=== PATIENT | female | born 2000 | race American Indian/Alaskan Native ===

== ENCOUNTER 2021-06-07 12:16 | Emergency (ER) | payer SELFPAY ==
[2021-06-07] MEDS ORDERED: METOCLOPRAMIDE 10 MG TAB PO ONE (13:19)
[2021-06-07] MEDS ORDERED: ACETAMINOPHEN 325 MG TAB PO ONE (13:19)
--- NOTE | 2021-06-07 13:24 | Emergency Department Report ---
ED HPI - General Chief complaint: Abdominal Pain Stated complaint: Abdominal Pain Time Seen by Provider: 06/07/21 13:15 Source: patient Mode of arrival: Ambulatory Limitations: No Limitations - History of Present Illness Initial comments: Patient is a 21-year-old female presents emergency room complaints of lower abdominal pain that began a couple days ago. Patient states that she took vtre-otn-wyyvdet test and reports it was positive. She has not had this confirmed she reports that her last menstrual cycle was 021. Patient states that this morning she had nausea and had one episode of vomiting. She is able to tolerate p.o. intake. she denies any fever, diarrhea, dysuria, vaginal bleeding, vaginal discharge. No past medical history. No allergies medications. /P: 0/A: 1 () - Related Data Previous Rx's Medication Instructions Recorded Last Taken Type Acetaminophen [Tylenol] 650 mg PO Q8HR PRN #20 capsule 06/07/21 Unknown Rx Metoclopramide [Reglan] 10 mg PO Q8HR PRN #10 tab 06/07/21 Unknown Rx cephALEXin [Keflex] 500 mg PO BID 7 Days #14 capsule 06/07/21 Unknown Rx Allergies Allergy/AdvReac Type Severity Reaction Status Date / Time No Known Allergies Allergy Unverified 06/07/21 13:21 ED Review of Systems ROS: Stated complaint: Abdominal Pain Other details as noted in HPI Comment: All other systems reviewed and negative ED Past Medical Hx - Medications Home Medications: Home Medications Medication Instructions Recorded Confirmed Last Taken Type Acetaminophen [Tylenol] 650 mg PO Q8HR PRN #20 capsule 06/07/21 Unknown Rx Metoclopramide [Reglan] 10 mg PO Q8HR PRN #10 tab 06/07/21 Unknown Rx cephALEXin [Keflex] 500 mg PO BID 7 Days #14 capsule 06/07/21 Unknown Rx ED Physical Exam - General Limitations: No Limitations General appearance: alert, in no apparent distress - Head Head exam: Present: atraumatic, normocephalic - Eye Eye exam: Present: normal appearance - ENT ENT exam: Present: mucous membranes moist - Respiratory Respiratory exam: Present: normal lung sounds bilaterally. Absent: respiratory distress, wheezes, rales, rhonchi, stridor, chest wall tenderness, accessory mu scle use, decreased breath sounds, prolonged expiratory - Cardiovascular Cardiovascular Exam: Present: regular rate, normal rhythm, normal heart sounds. Absent: systolic murmur, diastolic murmur, rubs, gallop - GI/Abdominal GI/Abdominal exam: Present: soft, tenderness (mild lower), normal bowel sounds. Absent: distended, guarding, rebound, rigid - Neurological Exam Neurological exam: Present: alert, oriented X3 - Psychiatric Psychiatric exam: Present: normal affect, normal mood - Skin Skin exam: Present: warm, dry, intact ED Course Vital Signs 06/07/21 06/07/21 13:17 18:23 Temperature 98 F 98.5 F Pulse Rate 70 79 Respiratory 16 16 Rate Blood Pressure 112/44 114/69 [Right] O2 Sat by Pulse 98 100 Oximetry ED Medical Decision Making - Lab Data Result diagrams: 06/07/21 14:44 06/07/21 14:44 Lab Results 06/07/21 06/07/21 06/07/21 Range/Units 13:19 14:44 14:44 WBC 12.2 H (4.5-11.0) K/mm3 RBC 5.15 H (3.65-5.03) M/mm3 Hgb 13.3 (10.1-14.3) gm/dl Hct 42.2 (30.3-42.9) % MCV 82 (79-97) fl MCH 26 L (28-32) pg MCHC 31 (30-34) % RDW 14.9 (13.2-15.2) % Plt Count 289 (140-440) K/mm3 Lymph % (Auto) 18.9 (13.4-35.0) % Marion % (Auto) 7.3 (0.0-7.3) % Eos % (Auto) 0.3 (0.0-4.3) % Baso % (Auto) 0.2 (0.0-1.8) % Lymph # (Auto) 2.3 (1.2-5.4) K/mm3 Marion # (Auto) 0.9 H (0.0-0.8) K/mm3 Eos # (Auto) 0.0 (0.0-0.4) K/mm3 Baso # (Auto) 0.0 (0.0-0.1) K/mm3 Seg Neutrophils % 73.3 H (40.0-70.0) % Seg Neutrophils # 8.9 H (1.8-7.7) K/mm3 Sodium 135 L (137-145) mmol/L Potassium 3.9 (3.6-5.0) mmol/L Chloride 99.4 (98-107) mmol/L Carbon Dioxide 21 L (22-30) mmol/L Anion Gap 19 mmol/L BUN 7 (7-17) mg/dL Creatinine 0.6 (0.6-1.2) mg/dL Estimated GFR > 60 ml/min BUN/Creatinine Ratio 12 % Glucose 99 (65-100) mg/dL Calcium 9.7 (8.4-10.2) mg/dL Total Bilirubin 0.20 (0.1-1.2) mg/dL AST 15 (5-40) units/L ALT 12 (7-56) units/L Alkaline Phosphatase 56 (35-129) units/L Total Protein 7.5 (6.3-8.2) g/dL Albumin 4.4 (3.9-5) g/dL Albumin/Globulin Ratio 1.4 % HCG, Quant (0-4) mIU/mL Urine Color Mikayla (Yellow) Urine Turbidity Cloudy (Clear) Urine pH 6.0 (5.0-7.0) Ur Specific Boomer 1.021 (1.003-1.030) Urine Protein 30 mg/dl (Negative) mg/dL Urine Glucose (UA) Neg (Negative) mg/dL Urine Ketones 20 (Negative) mg/dL Urine Blood Neg (Negative) Urine Nitrite Neg (Negative) Urine Bilirubin Neg (Negative) Urine Urobilinogen 4.0 (<2.0) mg/dL Ur Leukocyte Esterase Neg (Negative) Urine WBC (Auto) 11.0 H (0.0-6.0) /HPF Urine RBC (Auto) 3.0 (0.0-6.0) /HPF U Epithel Cells (Auto) 9.0 (0-13.0) /HPF Urine Bacteria (Auto) 1+ (Negative) /HPF Urine Mucus 3+ /HPF 12/20/21 Range/Units 14:44 WBC (4.5-11.0) K/mm3 RBC (3.65-5.03) M/mm3 Hgb (10.1-14.3) gm/dl Hct (30.3-42.9) % MCV (79-97) fl MCH (28-32) pg MCHC (30-34) % RDW (13.2-15.2) % Plt Count (140-440) K/mm3 Lymph % (Auto) (13.4-35.0) % Marion % (Auto) (0.0-7.3) % Eos % (Auto) (0.0-4.3) % Baso % (Auto) (0.0-1.8) % Lymph # (Auto) (1.2-5.4) K/mm3 Marion # (Auto) (0.0-0.8) K/mm3 Eos # (Auto) (0.0-0.4) K/mm3 Baso # (Auto) (0.0-0.1) K/mm3 Seg Neutrophils % (40.0-70.0) % Seg Neutrophils # (1.8-7.7) K/mm3 Sodium (137-145) mmol/L Potassium (3.6-5.0) mmol/L Chloride (98-107) mmol/L Carbon Dioxide (22-30) mmol/L Anion Gap mmol/L BUN (7-17) mg/dL Creatinine (0.6-1.2) mg/dL Estimated GFR ml/min BUN/Creatinine Ratio % Glucose (65-100) mg/dL Calcium (8.4-10.2) mg/dL Total Bilirubin (0.1-1.2) mg/dL AST (5-40) units/L ALT (7-56) units/L Alkaline Phosphatase (35-129) units/L Total Protein (6.3-8.2) g/dL Albumin (3.9-5) g/dL Albumin/Globulin Ratio % HCG, Quant 53140 H (0-4) mIU/mL Urine Color (Yellow) Urine Turbidity (Clear) Urine pH (5.0-7.0) Ur Specific Boomer (1.003-1.030) Urine Protein (Negative) mg/dL Urine Glucose (UA) (Negative) mg/dL Urine Ketones (Negative) mg/dL Urine Blood (Negative) Urine Nitrite (Negative) Urine Bilirubin (Negative) Urine Urobilinogen (<2.0) mg/dL Ur Leukocyte Esterase (Negative) Urine WBC (Auto) (0.0-6.0) /HPF Urine RBC (Auto) (0.0-6.0) /HPF U Epithel Cells (Auto) (0-13.0) /HPF Urine Bacteria (Auto) (Negative) /HPF Urine Mucus /HPF - Radiology Data Radiology results: report reviewed Ordering Physician: KARLOS BECKER Date of Service: 06/07/21 Procedure(s): US OB <= 14 weeks fetus Accession Number(s): [id number] cc: KARLOS BECKER US OB <= 14 weeks fetus, US OB transvaginal INDICATION / CLINICAL INFORMATION: , abd pain. TECHNIQUE: Transabdominal. COMPARISON: None available. FINDINGS: UTERUS: 2.7 x 1 x 1.5 cm subchorionic hemorrhage. GESTATIONAL SAC: Well-defined oval shape and intrauterine in location. YOLK SAC: No significant abnormality. EMBRYO/FETUS: - [place]-Rump Length = 0.3 cm - Heart Rate, beats per minute (if present) = 95 beats per minute ADNEXA: Left corpus luteal cyst. No significant abnormality. FREE FLUID: None. ADDITIONAL FINDINGS: None. IMPRESSION: 1. Single, living intrauterine with estimated sonographic age of 6 weeks 0 days. 2. Small subchorionic hemorrhage. Signer Name: Mnoroe yBrd MD Signed: 06/07/2021 6:01 PM Workstation Name: [id number] Transcribed By: CS Dictated By: Monroe Byrd MD Electronically Authenticated By: Monroe Byrd MD Signed Date/Time: 06/07/211800 DD/ 99 TD/TT: - Medical Decision Making Patient is a 21-year-old female presents emergency room complaints of lower abdominal pain that began a couple days ago. Patient states that she took lobo-ljc-htvkwov test and reports it was positive. She has not had this confirmed she reports that her last menstrual cycle was 04/23/2021. Patient states that this morning she had nausea and had one episode of vomiting. She is able to tolerate p.o. intake. she denies any fever, diarrhea, dysuria, vaginal bleeding, vaginal discharge. No past medical history. No allergies medications. /P: 0/A: 1 (). Vitals are normal. On exam mild lower abdominal tenderness palpation. Labs with mild leukocytosis, mild dehydration. Patient given medications while in emergency department was able to tolerate p.o. intake, discussed the importance of increasing oral hydration. UA shows evidence of UTI. OB ultrasound 1. Single, living intrauterine with estimated sonographic age of 6 weeks 0 days. 2. Small subchorionic hemorrhage. On reexamination patient is feeling much better. Discussed all results with patient answer questions. discussed the importance of OB follow-up. Advised patient Please take medication as prescribed. Increase your fluid intake. 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 Please take a vitamin [id number]. Return to emergency room for any new or worsening symptoms. Critical care attestation.: If time is entered above; I have spent that time in minutes in the direct care of this critically ill patient, excluding procedure time. ED Disposition Clinical Impression: Abdominal pain during Qualifiers: Trimester: first trimester Qualified Code(s): O26.891 - Other specified related conditions, first trimester UTI (urinary tract infection) Qualifiers: Urinary tract infection type: acute cystitis Hematuria presence: without hematuria Qualified Code(s): N30.00 - Acute cystitis without hematuria Subchorionic hematoma in first trimester Qualifiers: Fetus number: single or unspecified fetus Qualified Code(s): O41.8X10 - Other specified disorders of amniotic fluid and membranes, first trimester, not applicable or unspecified Nausea & vomiting Qualifiers: Vomiting type: unspecified Qualified Code(s): R11.2 - Nausea with vomiting, unspecified Disposition: 01 HOME / SELF CARE / HOMELESS Is pt being admited?: No Does the pt Need Aspirin: No Condition: Stable Instructions: Abdominal Pain During , Aggi-ku-Ogzu, Urinary Tract Infection, Adult, Xthy-ix-Shgf, Subchorionic Hematoma, Abdominal Pain (ED) Additional Instructions: Please take medication as prescribed. Increase your fluid intake. 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 Please take a vitamin [id number]. Return to emergency room for any new or worsening symptoms. Prescriptions: cephALEXin [Keflex] 500 mg PO BID 7 Days #14 capsule Metoclopramide [Reglan] 10 mg PO Q8HR PRN #10 tab PRN Reason: nausea/vomiting Acetaminophen [Tylenol] 650 mg PO Q8HR PRN #20 capsule PRN Reason: pain Referrals: PRIMARY CARE, [Primary Care Provider] - 3-5 Days JT BUI MD [Staff Physician] - 3-5 Days Time of Disposition: 18:09 Print Language: MAORI
[2021-06-07 15:24] LABS: Basophils % (Auto) 0.2 % (0.0-1.8); Eosinophils % (Auto) 0.3 % (0.0-4.3); Hematocrit 42.2 % (30.3-42.9); Hemoglobin 13.3 gm/dl (10.1-14.3); Lymphocytes # (Auto) 2.3 K/mm3 (1.2-5.4); Lymphocytes % (Auto) 18.9 % (13.4-35.0); Mean Corpuscular HGB Conc 31 % (30-34); Mean Corpuscular Volume 82 fl (79-97); Monocytes # (Auto) 0.9 K/mm3 (0.0-0.8); Monocytes % (Auto) 7.3 % (0.0-7.3); Platelet Count 289 K/mm3 (140-440); Red Blood Count 5.15 M/mm3 (3.65-5.03); Red Cell Distribution Width 14.9 % (13.2-15.2)
[2021-06-07 15:42] LABS: Alanine Aminotransferase 12 units/L (7-56); Albumin 4.4 g/dL (3.9-5); Blood Urea Nitrogen 7 mg/dL (7-17); Calcium 9.7 mg/dL (8.4-10.2); Hemolysis Index 5
[2021-06-07 15:58] LABS: BUN/Creatinine Ratio 12
[2021-06-07 17:36] LABS: Bacteria,Urine 1+ /HPF (Negative); Bilirubin,Urine NEG (Negative); Blood,Urine NEG (Negative); Color,Urine Amber (Yellow); Mucus,Urine 3+ /HPF
--- NOTE | 2021-06-07 18:06 | Ultrasound Report ---
US OB <= 14 weeks fetus, US OB transvaginal INDICATION / CLINICAL INFORMATION: , abd pain. TECHNIQUE: Transabdominal. COMPARISON: None available. FINDINGS: UTERUS: 2.7 x 1 x 1.5 cm subchorionic hemorrhage. GESTATIONAL SAC: Well-defined oval shape and intrauterine in location. YOLK SAC: No significant abnormality. EMBRYO/FETUS: - [place]-Rump Length = 0.3 cm - Heart Rate, beats per minute (if present) = 95 beats per minute ADNEXA: Left corpus luteal cyst. No significant abnormality. FREE FLUID: None. ADDITIONAL FINDINGS: None. IMPRESSION: 1. Single, living intrauterine with estimated sonographic age of 6 weeks 0 days. 2. Small subchorionic hemorrhage. Signer Name: Monroe Byrd MD Signed: 06/07/2021 6:01 PM Workstation Name: [id number]
--- NOTE | 2021-06-07 18:06 | Ultrasound Report ---
US OB <= 14 weeks fetus, US OB transvaginal INDICATION / CLINICAL INFORMATION: , abd pain. TECHNIQUE: Transabdominal. COMPARISON: None available. FINDINGS: UTERUS: 2.7 x 1 x 1.5 cm subchorionic hemorrhage. GESTATIONAL SAC: Well-defined oval shape and intrauterine in location. YOLK SAC: No significant abnormality. EMBRYO/FETUS: - [place]-Rump Length = 0.3 cm - Heart Rate, beats per minute (if present) = 95 beats per minute ADNEXA: Left corpus luteal cyst. No significant abnormality. FREE FLUID: None. ADDITIONAL FINDINGS: None. IMPRESSION: 1. Single, living intrauterine with estimated sonographic age of 6 weeks 0 days. 2. Small subchorionic hemorrhage. Signer Name: Monroe Byrd MD Signed: 06/07/2021 6:01 PM Workstation Name: [id number]
[2021-06-07 18:30] VITALS: BP 114/69
== END 2021-06-07 18:31 | disposition home or self-care (01) ==
LOC: ED 12:16
DX: O23.41 Unspecified infection of urinary tract in pregnancy, first trimester (principal); O21.0 Mild hyperemesis gravidarum; O41.8X10 Other specified disorders of amniotic fluid and membranes, first trimester, not applicable or unspecified; N39.0 Urinary tract infection, site not specified; Z3A.01 Less than 8 weeks gestation of pregnancy
CPT/HCPCS: 36415; 76801; 76817; 80053; 81001; 84702; 85025; 87076; 87086; 87186; 99284

== ENCOUNTER 2021-11-30 10:53 | Outpatient (CLI) | payer MEDICAID ==
[2021-11-30] MEDS ORDERED: LACTATED RINGERS 500 ML IV ONE ×2 (11:52→14:08)
[2021-11-30 11:53] VITALS: BP 108/64
[2021-11-30] MEDS ORDERED: ONDANSETRON 4 MG/2 ML INJ IV ONE (11:53)
[2021-11-30] MEDS ORDERED: METOCLOPRAMIDE 10 MG/2 ML INJ IV ONE (11:53)
[2021-11-30] MEDS ORDERED: LACTATED RINGERS 1,000 ML IV SCH (12:00)
== END 2021-11-30 14:21 | disposition home or self-care (01) ==
LOC: TRG 10:53 → APU 10:54 → TRG 14:21
PROVIDERS: ATTEND Obstetrics & Gynecology
DX: O62.9 Abnormality of forces of labor, unspecified (principal); O21.2 Late vomiting of pregnancy; O26.893 Other specified pregnancy related conditions, third trimester; R10.9 Unspecified abdominal pain; R07.9 Chest pain, unspecified; O99.013 Anemia complicating pregnancy, third trimester; D64.9 Anemia, unspecified; Z3A.32 32 weeks gestation of pregnancy
CPT/HCPCS: 59025; 96361; 96374; 96375; J2405; J2765; J7120; 96360

== ENCOUNTER 2022-01-16 03:06 | Inpatient (IN) | payer MEDICAID ==
[2022-01-16] MEDS ORDERED: LIDOCAINE (2%) 20 MG/1 ML VIAL 20 ML MDV INFILTRATI ONE (04:06)
[2022-01-16] MEDS ORDERED: ePHEDrine SULFATE 50 MG/1 ML INJ IV PRN ×3 (04:06→17:19)
[2022-01-16] MEDS ORDERED: LOPERAMIDE 2 MG CAP PO PRN (04:06)
[2022-01-16] MEDS ORDERED: TERBUTALINE 1 MG/1 ML INJ SUB-Q PRN (04:06)
[2022-01-16] MEDS ORDERED: CARBOPROST TROMETHAMINE 250 MCG/1 ML INJ IM PRN (04:06)
[2022-01-16] MEDS ORDERED: METHYLERGONOVINE MALEATE 0.2 MG/ML VIAL IM PRN (04:06)
[2022-01-16] MEDS ORDERED: OXYTOCIN 10 UNIT/1 ML INJ IM PRN (04:06)
[2022-01-16] MEDS ORDERED: miSOPROStol 200 MCG TAB PR PRN (04:06)
[2022-01-16] MEDS ORDERED: ACETAMINOPHEN 325 MG TAB PO PRN (04:06)
[2022-01-16] MEDS ORDERED: MINERAL OIL 30 ML ORAL LIQD PO PRN (04:06)
[2022-01-16] MEDS ORDERED: fentaNYL 100 MCG/2 ML INJ IV PRN (04:06)
[2022-01-16] MEDS ORDERED: BUTORPHANOL 2 MG/1 ML INJ IV PRN (04:06)
[2022-01-16 04:29] LABS: Hematocrit 31.1 % (30.3-42.9); Hemoglobin 10.5 gm/dl (10.1-14.3); Mean Corpuscular HGB Conc 34 % (30-34); Mean Corpuscular Volume 77 fl (79-97); Platelet Count 272 K/mm3 (140-440); Red Blood Count 4.02 M/mm3 (3.65-5.03); Red Cell Distribution Width 14.3 % (13.2-15.2)
[2022-01-16] MEDS ORDERED: OXYTOCIN DRIP 30 UNITS/500 ML BAG IV SCH ×2 (05:00)
--- NOTE | 2022-01-16 05:44 | History and Physical Report ---
History of Present Illness Date of examination: 01/16/22 Date of admission: 01/16/22 04:08 History of present illness: This is a 20-year-old patient of our practice who has not been seen in office since 32 weeks, who presents to labor and delivery with complaints of rupture membranes and contractions. The triage nurse states that the patient had grossly ruptured membranes cervix: Dilatation 1 cm. Patient be admitted for premature rupture membranes at term. 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 yes EDC Calculations LMP: 01/29/2022 EDC Confirmation: 01/29/2022 Past History : 2 Term Births: 0 Premature Births: 0 Living Children: 0 Para: 0 Mult. Births: 0 Prev : 0 Prev. attempt? 0 Aborta: 1 Elect. Ab: 1 Spont. Ab: 0 Ectopics: 0 # 1 Delivery date: 2018 Weeks Gestation: 20 Delivery type: EAB Comments: D&C Past Medical History: Asthma - childhood Past Surgical History: D&C Family History Summary: Other Family Member - Has Family History of Hypertension - Entered On: 07/06/2021 Other Family Member - Has Family History of Diabetes - Entered On: 07/06/2021 Aunt - Has Family History Breast Cancer - Entered On: 07/06/2021 Social History: Patient is single Smoking History: Patient has never smoked. Risk Factors: Smoked Tobacco Use: Never smoker Smokeless Tobacco Use: Never Counseled to Quit/Cut Down: yes Passive Smoke Exposure: no HIV High Risk Behavior: no Caffeine Use: 1 drinks per day Exercise: yes Times/wk: 3 Type of Exercise: walking Seatbelt Use: preg-direct selling counselor % No Dietary Counseling Reason: pn yes Alcohol Use: yes Type: occ Drinks per day: social Drug Use: yes Drug of Choice: marijuana Comments/Other Substances: occ Past Medical History Anesthesia Complications: negative Anemia: negative Autoimmune Disorder: negative Bleeding Disorder: negative Blood Transfusions: negative Breast Disease: negative Diabetes: negative Heart Disease: negative Hypertension: negative Hepatitis/Liver Disease: negative Kidney Disease/UTI: negative Neurologic/Epilepsy/Migraines: negative Phlebitis/Varicosities: negative Psychiatric: negative Pulmonary Disease/Asthma: negative Thyroid Disease: negative Hospitalizations: negative Surgery (Non-grout machine tender): negative Abnormal PAP: negative JOSE R Exposure: negative Infertility: negative Uterine Anomaly: negative Uterine Surgery (not C/S): negative Other Gynecologic Problems: negative Social Hx: Patient is single Smoking History: Patient has never smoked. Infection History Hx of STD: none HIV Risk Eval: no Hepatitis B Risk Eval: low risk Personal hx. of genital herpes: no Rash, Viral, or Febrile illness since last LMP? no Varicella/Chicken Pox Status: Unknown TB Risk: no Genetic History Congenital Heart Defect: Mom: no Dad: no Veronica Disease: Mom: no Dad: no Thalassemia Mom: no Dad: no Neural Tube Defect Mom: no Dad: no Down's Syndrome Mom: no Dad: no Georges-Sachs Mom: no Dad: no Sickle Cell Disease/Trait Mom: no Dad: no Hemophilia Mom: no Dad: no Muscular Dystrophy Mom: no Dad: no Cystic Fibrosis Mom: no Dad: no Kelly Chorea Mom: no Dad: no Mental Retardation Mom: no Dad: no Fragile X Mom: no Dad: no Other Genetic/Chromosomal Disorder Mom: no Dad: no Child w/other defect Mom: no Dad: no Enviromental Exposures Enviromental Exposures Reviewed Xray Exposure: no Medication, drug, or alcohol use since LMP: no Chemical/Other Exposure: no Exposure to Cat Liter: no Hx of Parvovirus (Fifth Disease): no Occupational Exposure to Children: none 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: 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 Current Allergies (reviewed today): No known allergies Past History Past Medical History: asthma Past Surgical History: no surgical history LICENSED NURSE PRACTITIONER History: other (See history of present illness) Social history: full code, other (See history of present illness) - Obstetrical History Expected Date of Delivery: 01/29/22 Actual Gestation: 38 Week(s) 1 Day(s) : 2 Para: 0 Hx # Term Pregnancies: 0 Number of Pregnancies: 0 Spontaneous Abortions: 0 Induced : 1 Number of Living Children: 0 Medications and Allergies Allergies Allergy/AdvReac Type Severity Reaction Status Date / Time No Known Allergies Allergy Unverified 06/07/21 13:21 Home Medications Medication Instructions Recorded Confirmed Last Taken Type Acetaminophen [Tylenol] 650 mg PO Q8HR PRN #20 capsule 06/07/21 Unknown Rx Metoclopramide [Reglan] 10 mg PO Q8HR PRN #10 tab 06/07/21 Unknown Rx cephALEXin [Keflex] 500 mg PO BID 7 Days #14 capsule 06/07/21 Unknown Rx Active Meds: Active Medications Acetaminophen (Acetaminophen 325 Mg Tab) 650 mg PO Q4H PRN PRN Reason: Pain, Mild (1-3) Butorphanol Tartrate (Butorphanol 2 Mg/1 Ml Inj) 1 mg IV Q2H PRN PRN Reason: Pain, Moderate(4-6) LABOR PAIN Butorphanol Tartrate (Butorphanol 2 Mg/1 Ml Inj) 2 mg IV Q2H PRN PRN Reason: Pain , Severe (7-10) Carboprost Tromethamine (Carboprost Tromethamine 250 Mcg/1 Ml Inj) 250 mcg IM ONCE PRN PRN Reason: Uterine Bleeding Ephedrine Sulfate (Ephedrine Sulfate 50 Mg/1 Ml Inj) 10 mg IV Q2M PRN PRN Reason: Hypotension Fentanyl (Fentanyl 100 Mcg/2 Ml Inj) 100 mcg IV Q2H PRN PRN Reason: Pain,Severe (7-10) LABOR PAIN Oxytocin/Sodium Chloride (Pitocin/Ns 30 Unit/500ml) 30 units in 500 mls @ 2 mls/hr IV TITR SARA; Protocol Lactated Ringer's (Lactated Ringers) 1,000 mls @ 125 mls/hr IV DIRECT SARA Oxytocin/Sodium Chloride (Pitocin/Ns 30 Unit/500ml) 30 units in 500 mls @ 40 mls/hr IV TITR SARA; Protocol Loperamide HCl (Loperamide 2 Mg Cap) 2 mg PO ONCE PRN PRN Reason: give with Hemabate Methylergonovine Maleate (Methylergonovine Maleate 0.2 Mg/Ml Vial) 0.2 mg IM O NCE PRN PRN Reason: Uterine Bleeding Mineral Oil (Mineral Oil 30 Ml Oral Liqd) 30 ml PO QHS PRN PRN Reason: Constipation Misoprostol (Misoprostol 200 Mcg Tab) 800 mcg NJ ONCE PRN PRN Reason: Uterine Bleeding Oxytocin (Oxytocin 10 Unit/1 Ml Inj) 10 unit IM ONCE PRN PRN Reason: Uterine Bleeding Terbutaline Sulfate (Terbutaline 1 Mg/1 Ml Inj) 0.25 mg SUB-Q ONCE PRN PRN Reason: Hyperstimulation/Hypertonicity Review of Systems All systems: negative - Vital Signs Vital signs: Vital Signs Temp Resp Pulse Ox 98.2 F 14 100 01/16/22 03:25 01/16/22 03:25 01/16/22 03:25 Temp Pulse Resp BP Pulse Ox 98.2 F 55 L 14 96/49 98 01/16/22 03:25 01/16/22 05:37 01/16/22 03:25 01/16/22 05:07 01/16/22 05:37 - Physical Exam Breasts: Positive: deferred Cardiovascular: Regular rate Lungs: Positive: Normal air movement Abdomen: Positive: normal appearance Cervix: Positive: other (Per RN) Uterus: Positive: enlarged - Obstetrical FHR: category 1 Uterine Contraction Pattern: Irregular Uterine Tone Measurement Phase: Resting Uterine Contraction Intensity: Mild Results Result Diagrams: 01/16/22 04:10 Abnormal lab results 01/16/22 Range/Units 04:10 MCV 77 L (79-97) fl MCH 26 L (28-32) pg All other labs normal. Assessment and Plan - Patient Problems (1) Supervision of high-risk with insufficient care in third trimester Current Visit: Yes Status: Acute (2) Premature rupture of membranes, onset of labor within 24 hours of rupture, unspecified weeks of gestation Current Visit: Yes Status: Acute Qualifiers: PROM gestational age: full term Qualified Code(s): O42.02 - Full-term premature rupture of membranes, onset of labor within 24 hours of rupture Plan to address problem: Will admit to labor and delivery. Patient with unknown group B status. We will give IV antibiotics and follow routine labor and delivery protocols.
[2022-01-16] MEDS ORDERED: AMPICILLIN/NS 1 GM/50 ML 1 GM/50 ML BAG IV SCH (06:00)
[2022-01-16] MEDS: LACTATED RINGERS 1,000 ML IV SCH ×3 (06:21→16:45)
[2022-01-16] MEDS ORDERED: AMPICILLIN/NS 2 GM/100 ML 2 GM/100 ML BAG IV ONE (08:00)
[2022-01-16] MEDS: BUTORPHANOL 2 MG/1 ML INJ IV PRN ×2 (13:17→15:33)
[2022-01-16] MEDS: AMPICILLIN/NS 1 GM/50 ML 1 GM/50 ML BAG IV SCH ×2 (13:29→21:17)
--- NOTE | 2022-01-16 14:25 | Event Note ---
Date: 01/16/22 Chart reviewed spoke to RN cervix changed to 3 cm recently received Stadol, pitocin @ 6mu/min will continue present management patient does not desire epidural at present
[2022-01-16] MEDS ORDERED: NALOXONE 0.4 MG/1 ML INJ IV PRN ×2 (17:06→17:19)
--- NOTE | 2022-01-16 17:08 | Anesthesia Day of Surgery ---
Anesthesia Day of Surgery - Day of Surgery Patient Examined: Yes Patient H&P Reviewed: Yes Patient is NPO: Yes Beta Blockers: No Cardiac Clearance: No Pulmonary Clearance: No Vinnie's Test: N/A
--- NOTE | 2022-01-16 17:08 | Anesthesia Consultation ---
Anesthesia Consult and Med Hx Date of service: 01/16/22 - Airway Anesthetic Teeth Evaluation: Good ROM Head & Neck: Adequate Mental/Hyoid Distance: Adequate Mallampati Class: Class II Intubation Access Assessment: Probably Good - Pulmonary Exam CTA: Yes - Cardiac Exam Cardiac Exam: RRR - Pre-Operative Health Status ASA Pre-Surgery Classification: ASA2 Proposed Anesthetic Plan: Epidural - Pulmonary Hx Smoking: No Hx Asthma: No Hx Respiratory Symptoms: No SOB: No COPD: No Home Oxygen Therapy: No Hx Sleep Apnea: No - Cardiovascular System Hx Hypertension: No Hx Coronary Artery Disease: No Hx Heart Attack/AMI: No Hx Angina: No Hx Percutaneous Transluminal Coronary Angioplasty (PTCA): No Hx Cardia Arrhythmia: No Hx Pacemaker: No Hx Internal Defibrillator: No Hx Valvular Heart Disease: No Hx Heart Murmur: No Hx Peripheral Vascular Disease: No - Central Nervous System Hx Neuromuscular Disorder: No Hx Seizures: No CVA: No Hx Back Pain: No Hx Psychiatric Problems: No - Gastrointestinal Hx Ulcer: No Hx Gastroesophageal Reflux Disease: No - Endocrine Hx Renal Disease: No Hx End Stage Renal Disease: No Hx Cirrhosis: No Hx Liver Disease: No Hx Insulin Dependent Diabetes: No Hx Non-Insulin Dependent Diabetes: No Hx Thyroid Disease: No Hx Hypothyroidism: No Hx Hyperthyroidism: No - Hematic Hx Anemia: No Hx Sickle Cell Disease: No - Other Systems Hx Alcohol Use: No Hx Substance Use: No Hx Cancer: No Hx Obesity: Yes
--- NOTE | 2022-01-16 17:11 | Progress Note ---
Labor Epidural - Labor Epidural Start Time: 16:44 Stop Time: 16:47 Performed by:: WAYNE PASCUAL Procedure: Epidural Requested for Labor Pain. H&P and PT Chart reviewed and consent obtained. Time out performed and the procedure was explained, all questions answered. Patient was placed in a sitting position with monitors applied. The PTs back was prepped and draped in usual sterile fashion. The Skin was localized with 3 mL of 1% lidocaine at L3-L4. A 17-gauge Touhy epidural needle was advanced to [id number] with saline at 7 cm and no blood/CSF was noted via epidural needle. Epidural catheter was advanced to 12 cm. There was negative aspiration for blood and CSF in the catheter and negative response to a test dose of 3 ml 1.5% lidocaine w/ Epi and a sterile dressing was applied Patient tolerated the procedure well and there were no immediate complications noted.
[2022-01-16] MEDS: fentaNYL-BUPIV 2 MCG/ML-0.125% 200 MCG/100 ML BAG EPIDURAL SCH ×2 (17:27→23:28)
--- NOTE | 2022-01-16 18:52 | Event Note ---
Date: 01/16/22 Chart reviewed cervix is changing spoke to RN patient now comfortable with epidural will adjust toco to better monitor contractions. Titrate pitocin per protocol
--- NOTE | 2022-01-16 22:20 | Event Note ---
Date: 01/16/22 Called RN cervix was checked at shift change no change. IV pump for pitocin stopped during epidural, therefore contractions spaced out. Pitocin has been restarted.
[2022-01-16] MEDS ORDERED: BUPIVACAINE/PF (0.25%) 2.5 MG/ML 10 ML VIAL INFILTRATI ONE (23:07)
--- NOTE | 2022-01-17 00:39 | Event Note ---
Date: 01/17/22 Tracing reviewed. Contractions have returned. Cervix suture around 2300 noted 5 cm.
[2022-01-17] MEDS ORDERED: BUPIVACAINE/PF (0.25%) 2.5 MG/ML 30 ML VIAL INFILTRATI ONE (00:58)
--- NOTE | 2022-01-17 01:31 | Progress Note ---
Labor Epidural - Labor Epidural Start Time: :18 Stop Time: : Performed by:: WAYNE PASCUAL Procedure: Pt complaining of low abdominal pain with no relief even after bolusing. Upon inspection of existing catheter it appears to be still intact midline with no migration. Spoke with Pt about replacing existing catheter with a second one and she agreed and consented. Time out performed and the procedure was again explained and all questions answered. Patient was placed in a sitting position with monitors applied. The PTs back was prepped and draped in usual sterile fashion. The Skin was localized with 3 mL of 1% lidocaine at L3-L4. A 17-gauge Touhy epidural needle was advanced to АЛЕ[place]САНДР with saline at 7 cm and no blood/CSF was noted via epidural needle. Epidural catheter was advanced to 11 cm. There was negative aspiration for blood and CSF in the catheter and negative response to a test dose of 3 ml 1.5% lidocaine w/ Epi and a sterile dressing was applied Patient tolerated the procedure well and there were no immediate complications noted.
--- NOTE | 2022-01-17 03:13 | Procedure Note ---
OB Delivery Note - Delivery Date of Delivery: 01/17/22 Surgeon: AMADEO ROSE Estimated blood loss: other (350cc) - Vaginal Delivery position: OA Intrapartum events: PROM->1hr before delivery Delivery augmentation: pitocin Delivery monitor: external FHT, external uterine Route of delivery: Delivery placenta: spontaneous Delivery cord: nuchal cord Episiotomy: none Delivery laceration: other (Bilateral periurethral lacerations no repair needed) Anesthesia: epidural Delivery comments: of infant over intact perineum. to mother's chest for skin to skin. Cord cut and clamped. . Spontaneous delivery of placenta, intact, 3 vessels noted. Perineum and vaginal inspected, lacerations noted. Fundus firm, minimal bleeding noted. Infant left in stable condition in the care of RN. Sponge count correct. - Infant A at 1 minute: 8 at 5 minutes: 9 Gender: Male (Weight 6 pounds 13 ounces)
[2022-01-17] MEDS ORDERED: HYDROCORTISONE 25 MG RECTAL SUPP PR PRN (05:51)
[2022-01-17] MEDS ORDERED: diphenhydrAMINE 25 MG CAP PO PRN (05:51)
[2022-01-17] MEDS ORDERED: WITCH HAZEL/ GLYCERIN PAD TP PRN (05:51)
[2022-01-17] MEDS ORDERED: LANOLIN/ZINC/DIMETHICONE (LANSINOH) 7 GM TP PRN (05:51)
[2022-01-17] MEDS ORDERED: ACETAMINOPHEN 325 MG TAB PO PRN (05:51)
[2022-01-17] MEDS ORDERED: MAGNESIUM HYDROXIDE (MOM) ORAL LIQD UDC PO PRN (05:51)
[2022-01-17] MEDS ORDERED: PROMETHAZINE 25 MG TAB PO PRN (05:51)
[2022-01-17] MEDS: IBUPROFEN 800 MG TAB PO SCH ×3 (06:50→23:58)
--- NOTE | 2022-01-17 08:00 | Progress Note ---
Assessment and Plan A: 21 y.o. s/p , ~ 5 hour . - Patient Problems (1) Normal delivery at term Current Visit: Yes Status: Acute Plan to address problem: Continue with care. Case management needed d/t insufficient care. If remains stable, discharge home on 01/18. Subjective - Subjective Date of service: 01/17/22 Principal diagnosis: s/p . ~ 5 hours Patient reports: appetite normal, voiding normally, pain well controlled, flatus, ambulating normally : doing well Objective - Vital Signs Latest vital signs: Vital Signs Temp Pulse Resp BP BP Pulse Ox Pulse Ox 01/17/22 06:10 98.6 F 67 18 104/50 98 98 01/17/22 05:17 70 99 01/17/22 05:15 65 113/58 01/17/22 05:12 67 100 01/17/22 05:07 66 100 01/17/22 05:02 63 100 01/17/22 05:00 59 L 111/55 01/17/22 04:57 78 92 01/17/22 04:52 66 99 01/17/22 04:47 60 100 01/17/22 04:45 66 112/56 93 01/17/22 04:42 65 99 01/17/22 04:37 59 L 99 01/17/22 04:32 59 L 100 01/17/22 04:30 57 L 106/52 01/17/22 04:27 59 L 100 01/17/22 04:26 66 84 01/17/22 04:22 60 100 01/17/22 04:17 61 100 01/17/22 04:16 63 79 L 01/17/22 04:15 60 109/55 01/17/22 04:12 80 88 01/17/22 04:10 64 88 01/17/22 04:07 64 99 01/17/22 04:03 63 89 01/17/22 04:02 64 98 01/17/22 04:00 62 111/58 01/17/22 03:57 65 97 01/17/22 03:52 59 L 100 01/17/22 03:47 73 100 01/17/22 03:45 70 110/56 01/17/22 03:42 64 99 01/17/22 03:37 67 100 01/17/22 03:32 76 97 01/17/22 03:31 71 82 L 01/17/22 03:30 75 103/51 01/17/22 03:27 63 87 01/17/22 03:26 70 92 01/17/22 03:22 64 100 01/17/22 03:20 121 H 86 01/17/22 03:17 67 99 01/17/22 03:15 96 H 102/59 83 L 01/17/22 03:12 72 99 01/17/22 03:09 68 102/59 01/17/22 03:08 85 87 01/17/22 03:07 74 100 01/17/22 03:02 67 100 01/17/22 03:01 85 90 01/17/22 03:00 123 H 122/78 01/17/22 02:57 125 H 97 01/17/22 02:56 109 H 94 01/17/22 02:52 63 98 01/17/22 02:51 105 H 91 01/17/22 02:47 79 121/54 100 01/17/22 02:42 74 91 01/17/22 02:37 74 99 01/17/22 02:32 70 97 01/17/22 02:31 70 114/56 92 01/17/22 02:27 82 100 01/17/22 02:25 71 88 01/17/22 02:22 60 100 01/17/22 02:17 59 L 100 01/17/22 02:15 53 L 115/58 01/17/22 02:12 54 L 100 01/17/22 02:07 55 L 100 01/17/22 02:02 64 100 01/17/22 02:01 55 L 112/54 01/17/22 01:57 61 100 01/17/22 01:52 60 99 01/17/22 01:47 63 100 01/17/22 01:44 58 L 121/60 01/17/22 01:43 59 L 137/56 01/17/22 01:42 60 98 01/17/22 01:41 56 L 131/60 01/17/22 01:39 58 L 149/60 01/17/22 01:37 67 100 01/17/22 01:35 62 136/63 01/17/22 01:32 60 121/56 100 01/17/22 01:30 61 125/59 08/01/22 01:29 70 113/59 01/17/22 01:27 62 98 01/17/22 01:26 80 125/59 01/17/22 01:24 85 113/59 01/17/22 01:23 98 H 113/56 01/17/22 01:22 91 H 95 01/17/22 01:21 71 117/76 01/17/22 01:20 75 93 01/17/22 01:18 76 114/53 01/17/22 01:17 67 97 01/17/22 01:16 61 115/51 01/17/22 01:14 66 L 01/17/22 01:12 68 96 01/17/22 01:07 65 95 01/17/22 01:02 67 86 01/17/22 00:57 64 99 01/17/22 00:52 73 100 01/17/22 00:49 73 92 01/17/22 00:47 67 99 01/17/22 00:42 74 100 01/17/22 00:40 78 118/65 01/17/22 00:37 65 100 01/17/22 00:32 69 99 01/17/22 00:27 63 99 01/17/22 00:24 59 L 117/56 01/17/22 00:22 61 100 01/17/22 00:17 60 100 01/17/22 00:12 70 100 01/17/22 00:09 65 121/74 01/17/22 00:07 69 100 01/17/22 00:02 62 100 01/16/22 23:57 60 100 01/16/22 23:55 54 L 110/63 01/16/22 23:52 59 L 99 01/16/22 23:48 72 85 01/16/22 23:47 72 99 01/16/22 23:42 78 100 01/16/22 23:39 68 129/60 01/16/22 23:37 63 99 01/16/22 23:32 62 100 01/16/22 23:27 57 L 99 01/16/22 23:23 58 L 107/56 01/16/22 23:22 60 100 01/16/22 23:17 56 L 99 01/16/22 23:12 56 L 99 01/16/22 23:11 62 117/56 01/16/22 23:07 71 100 01/16/22 23:02 68 121/64 100 01/16/22 22:57 59 L 100 01/16/22 22:52 74 100 01/16/22 22:48 57 L 125/68 01/16/22 22:47 62 100 01/16/22 22:42 60 100 01/16/22 22:37 56 L 100 01/16/22 22:32 59 L 100 01/16/22 22:31 59 L 121/60 01/16/22 22:27 56 L 100 01/16/22 22:22 58 L 100 01/16/22 22:21 64 93 01/16/22 22:17 59 L 98 01/16/22 22:16 54 L 118/60 01/16/22 22:12 62 100 01/16/22 22:07 58 L 100 01/16/22 22:02 69 124/84 98 01/16/22 21:57 63 100 01/16/22 21:52 63 100 01/16/22 21:47 61 99 01/16/22 21:46 56 L 122/59 01/16/22 21:42 56 L 99 01/16/22 21:37 56 L 100 01/16/22 21:32 57 L 99 01/16/22 21:31 57 L 112/58 01/16/22 21:27 55 L 100 01/16/22 21:22 60 88 01/16/22 21:17 63 99 01/16/22 21:16 60 119/63 01/16/22 21:12 61 100 01/16/22 21:07 58 L 99 01/16/22 21:02 55 L 100 01/16/22 21:01 54 L 120/65 01/16/22 20:57 58 L 99 01/16/22 20:52 60 99 01/16/22 20:47 57 L 100 01/16/22 20:46 57 L 120/67 01/16/22 20:42 56 L 100 01/16/22 20:37 57 L 100 01/16/22 20:32 55 L 100 01/16/22 20:31 55 L 123/64 01/16/22 20:27 56 L 100 01/16/22 20:22 57 L 100 01/16/22 20:17 56 L 100 07/31/22 20:16 56 L 123/60 01/16/22 20:12 56 L 100 01/16/22 20:07 56 L 100 01/16/22 20:05 61 92 01/16/22 20:02 60 127/59 100 01/16/22 19:57 59 L 100 01/16/22 19:55 57 L 81 L 01/16/22 19:52 57 L 95 01/16/22 19:47 63 97 01/16/22 19:46 63 128/64 01/16/22 19:42 62 100 01/16/22 19:37 56 L 100 01/16/22 19:36 69 88 01/16/22 19:32 60 100 01/16/22 19:31 60 122/67 01/16/22 19:29 72 83 L 01/16/22 19:27 59 L 87 01/16/22 19:24 55 L 92 01/16/22 19:22 58 L 100 01/16/22 19:17 60 100 01/16/22 19:16 61 118/64 01/16/22 19:15 59 L 86 01/16/22 19:12 97.8 F 58 L 18 100 99 01/16/22 19:10 58 L 94 01/16/22 19:07 59 L 100 01/16/22 19:03 57 L 83 L 01/16/22 19:02 59 L 99 01/16/22 19:01 56 L 114/63 01/16/22 18:57 65 100 01/16/22 18:56 59 L 79 L 01/16/22 18:52 53 L 99 01/16/22 18:47 53 L 97 01/16/22 18:46 53 L 115/62 01/16/22 18:42 54 L 99 01/16/22 18:37 57 L 100 01/16/22 18:32 54 L 99 01/16/22 18:31 51 L 107/65 01/16/22 18:27 53 L 100 01/16/22 18:22 54 L 99 01/16/22 18:18 55 L 110/57 01/16/22 18:17 53 L 100 01/16/22 18:15 62 94 01/16/22 18:12 63 100 01/16/22 18:07 58 L 100 01/16/22 18:04 54 L 101/53 01/16/22 18:02 55 L 100 01/16/22 17:57 54 L 100 01/16/22 17:52 55 L 100 01/16/22 17:47 60 100 01/16/22 17:46 56 L 99/57 01/16/22 17:42 58 L 100 01/16/22 17:37 54 L 100 01/16/22 17:35 62 94 01/16/22 17:32 64 97/50 97 01/16/22 17:29 63 91 01/16/22 17:27 54 L 100 01/16/22 17:22 54 L 99 01/16/22 17:21 59 L 87 01/16/22 17:17 58 L 98 01/16/22 17:16 65 111/56 01/16/22 17:15 67 115/57 01/16/22 17:13 58 L 114/57 01/16/22 17:12 61 99 01/16/22 17:11 57 L 122/60 01/16/22 17:09 118/71 01/16/22 17:07 64 111/62 99 01/16/22 17:05 55 L 106/55 01/16/22 17:03 53 L 112/58 01/16/22 17:02 50 L 100 01/16/22 17:01 52 L 109/60 01/16/22 17:00 98.5 F 16 01/16/22 16:59 51 L 112/56 01/16/22 16:57 57 L 99 01/16/22 16:56 54 L 109/57 01/16/22 16:52 60 94 01/16/22 16:51 51 L 123/79 01/16/22 16:50 54 L 131/74 01/16/22 16:47 52 L 122/62 98 01/16/22 16:43 54 L 140/84 01/16/22 16:42 58 L 97 01/16/22 16:41 68 80 L 01/16/22 16:37 57 L 100 01/16/22 16:32 59 L 100 01/16/22 16:30 61 94 01/16/22 16:27 52 L 100 01/16/22 16:24 61 92 01/16/22 16:22 58 L 100 07/31/22 16:17 58 L 100 01/16/22 16:12 68 127/72 100 01/16/22 16:07 53 L 99 01/16/22 16:02 59 L 98 01/16/22 15:57 54 L 99 01/16/22 15:52 53 L 98 01/16/22 15:47 50 L 99 01/16/22 15:42 56 L 139/69 100 01/16/22 15:37 56 L 100 01/16/22 15:32 54 L 99 01/16/22 15:27 56 L 100 01/16/22 15:22 52 L 100 01/16/22 15:17 56 L 100 01/16/22 15:12 54 L 105/56 100 01/16/22 15:07 55 L 100 01/16/22 15:02 53 L 100 01/16/22 15:00 99.1 F 16 01/16/22 14:57 68 100 01/16/22 14:52 55 L 100 01/16/22 14:47 57 L 98 01/16/22 14:42 59 L 100 01/16/22 14:41 62 112/63 01/16/22 14:37 56 L 100 01/16/22 14:32 56 L 100 01/16/22 14:27 51 L 99 01/16/22 14:22 53 L 100 01/16/22 14:17 60 98 01/16/22 14:12 54 L 115/65 97 01/16/22 14:07 57 L 97 01/16/22 14:02 58 L 97 01/16/22 13:57 61 16 98 01/16/22 13:52 56 L 98 01/16/22 13:47 60 98 01/16/22 13:42 57 L 116/56 98 01/16/22 13:37 56 L 98 01/16/22 13:32 55 L 98 01/16/22 13:27 58 L 98 01/16/22 13:23 59 L 127/68 01/16/22 13:22 56 L 99 01/16/22 13:17 61 98 01/16/22 13:12 57 L 100 01/16/22 13:11 62 127/82 01/16/22 13:07 52 L 99 01/16/22 13:02 63 99 01/16/22 13:00 98.1 F 01/16/22 12:57 66 100 01/16/22 12:52 60 99 01/16/22 12:47 61 98 01/16/22 12:43 67 121/65 01/16/22 12:42 72 97 01/16/22 12:37 75 98 01/16/22 12:32 67 98 01/16/22 12:28 65 94 01/16/22 12:27 65 98 01/16/22 12:22 61 97 01/16/22 12:17 72 99 01/16/22 12:12 67 96 01/16/22 12:11 67 111/65 01/16/22 12:07 62 96 01/16/22 12:02 67 95 01/16/22 11:58 16 01/16/22 11:57 61 98 01/16/22 11:52 64 96 01/16/22 11:47 67 98 01/16/22 11:42 59 L 96 01/16/22 11:41 62 124/69 01/16/22 11:37 77 100 01/16/22 11:32 65 97 01/16/22 11:11 58 L 108/58 01/16/22 11:00 98.1 F 16 01/16/22 10:43 70 143/61 01/16/22 10:11 64 129/71 01/16/22 09:41 59 L 105/68 01/16/22 09:00 98.5 F 16 01/16/22 08:43 73 92 01/16/22 08:42 73 93 01/16/22 08:37 64 98 01/16/22 08:32 63 99 01/16/22 08:27 60 96 01/16/22 08:22 64 99 01/16/22 08:17 54 L 98 01/16/22 08:12 58 L 98 01/16/22 08:07 59 L 98 01/16/22 08:02 59 L 97 Intake and Output 01/16/22 01/17/22 01/17/22 22:59 06:59 14:59 Intake Total 122.917 Output Total 500 Balance -377.083 Intake: IV 122.917 Lactated Ringers 1,000 ml 122.917 @ 125 mls/hr IV DIRECT SARA Rx#:[id number] Output: Urine 500 Void 500 Other: Total, Output Amount 500 Estimated Blood Loss 350 - Exam Breasts: Present: deferred Cardiovascular: Present: Regular rate Lungs: Present: Normal air movement Abdomen: Present: normal appearance, soft Uterus: Present: normal, firm Extremities: Present: normal
[2022-01-17] MEDS: oxyCODONE /ACETAMINOPHEN 5-325MG TAB PO PRN ×2 (08:32→16:26)
--- NOTE | 2022-01-17 08:47 | Post Anesthesia Evaluation ---
- Post Anesthesia Evaluation Patient Participated: Yes Airway Patent: Yes Stable Respiratory Function: Yes Nausea/Vomiting: No Temp > 96.8F: Yes Pain Manageable: Yes Adequeate Hydration: Yes Anesthesia Complications: No Block Receding Appropriately: Yes Patient on Ventilator: No
[2022-01-17] MEDS ORDERED: MEASLES, MUMPS & RUBELLA 12,500 UNIT/0.5 ML VACCINE SUB-Q ONE (10:00)
[2022-01-17] MEDS: DOCUSATE SODIUM 100 MG CAP PO SCH ×2 (11:04→22:48)
[2022-01-17] MEDS: FERROUS SULFATE 325 MG TAB PO SCH ×2 (11:04→22:48)
[2022-01-17] MEDS: PRENATAL VIT27-FE FUMARATE-FOLIC ACID VIT TAB PO SCH (11:05)
[2022-01-17 19:50] LABS: Hematocrit 30.6 % (30.3-42.9); Hemoglobin 9.8 gm/dl (10.1-14.3)
[2022-01-18] MEDS ORDERED: MEASLES, MUMPS & RUBELLA 12,500 UNIT/0.5 ML VACCINE SUB-Q ONE (03:16)
[2022-01-18] MEDS: IBUPROFEN 800 MG TAB PO SCH ×2 (05:48→17:49)
[2022-01-18] MEDS ORDERED: TETANUS,DIPH,PERTUSS(ACELL) VACCINE 0.5 ML SYRINGE IM ONE (06:00)
[2022-01-18] MEDS: oxyCODONE /ACETAMINOPHEN 5-325MG TAB PO PRN (07:52)
--- NOTE | 2022-01-18 08:37 | Discharge Summary ---
Providers - Providers Date of Admission: 01/17/22 05:51 Date of discharge: 01/18/22 Attending physician: AMADEO ROSE 01/17/22 05:51 Consult to Food Service Manager [CONS] Routine Reason For Exam: assistance with , SNS 01/17/22 08:18 Consult to Case Management [CONS] Routine Services Needed at Discharge: Highway Engineering Technician Notified:: LAURE Phone number called:: [phone]; [phone] Was contact made?: No Time called:: 09:20 Additional Physician Instructions: Insufficient care. To make sure she has what she needs at home for infant. Primary care physician: STAN BALDERAS Hospitalization Reason for admission: labor Condition: Good Pertinent studies: H&H 9.8/30.6, asymptomatic anemia d/t acute blood loss Procedures: Hospital course: uncomplicated and course Disposition: 01 HOME / SELF CARE / HOMELESS Final Discharge Diagnosis (Prints w/discharge instructions): vaginal Time spent for discharge: 15 - Discharge Diagnoses (1) Normal delivery at term Status: Acute Core Measure Documentation - Palliative Care Palliative Care/ Comfort Measures: Not Applicable - Core Measures Any of the following diagnoses?: none Exam - Constitutional Vitals: Temp Pulse Resp BP Pulse Ox 98.0 F 73 20 129/64 100 01/18/22 00:33 01/18/22 00:33 01/18/22 05:48 01/18/22 00:33 01/18/22 08:00 General appearance: Present: no acute distress, well-nourished - EENT Eyes: Present: PERRL ENT: hearing intact, clear oral mucosa - Neck Neck: Present: supple, normal ROM - Respiratory Respiratory effort: normal Respiratory: bilateral: CTA - Cardiovascular Rhythm: regular - Extremities Extremities: No edema - Abdominal General gastrointestinal: Present: soft, non-tender, non-distended, normal bowel sounds Female genitourinary: Present: normal - Integumentary Integumentary: Present: clear, warm, dry - Musculoskeletal Musculoskeletal: gait normal, strength equal bilaterally - Psychiatric Psychiatric: appropriate mood/affect, intact judgment & insight - Neurologic Neurologic: CNII-XII intact, moves all extremities - Additional findings Additional findings: lochia scant, fundus firm, bottle feeding Plan Activity: no restrictions Follow up with: STAN BALDERAS MD [Primary Care Provider] - 7 Days (Congratulations!! Please call [phone] to schedule your son's circumcision in 1 week and your visit in 6 weeks. Bring EMLA cream to your son's visit and wait for instructions. Call for any questions or concerns.) Prescriptions: Lidocain2.5%/Prilocai2.5% [Emla] 5 gm TP ONCE PRN #1 tube PRN Reason: Pain Ibuprofen [Motrin 800 MG tab] 800 mg PO Q8HR PRN #30 tablet PRN Reason: Pain
[2022-01-18] MEDS ORDERED: medroxyPROGESTERone ACETATE 150 MG/ML SYRINGE IM SCH (09:00)
[2022-01-18] MEDS: DOCUSATE SODIUM 100 MG CAP PO SCH (11:37)
[2022-01-18] MEDS: PRENATAL VIT27-FE FUMARATE-FOLIC ACID VIT TAB PO SCH (11:38)
[2022-01-18] MEDS: FERROUS SULFATE 325 MG TAB PO SCH (11:38)
[2022-01-18 16:51] VITALS: BP 119/80
== END 2022-01-18 20:20 | disposition home or self-care (01) | DRG 775 ==
LOC: TRG 03:06 → APU 03:07 → TRG 04:08 → LD 04:08 → OB 01-17 05:50 → OBSVTOIN 01-17 05:51
PROVIDERS: ADMIT Obstetrics & Gynecology; ATTEND Obstetrics & Gynecology
PROC: 10E0XZZ Delivery of Products of Conception, External Approach (ICD-10-PCS; principal; 2022-01-17)
PROC: 3E0R3BZ Introduction of Anesthetic Agent into Spinal Canal, Percutaneous Approach (ICD-10-PCS; 2022-01-17)
PROC: 00HU33Z Insertion of Infusion Device into Spinal Canal, Percutaneous Approach (ICD-10-PCS; 2022-01-17)
PROC: 3E0234Z Introduction of Serum, Toxoid and Vaccine into Muscle, Percutaneous Approach (ICD-10-PCS; 2022-01-18)
PROC: 3E0134Z Introduction of Serum, Toxoid and Vaccine into Subcutaneous Tissue, Percutaneous Approach (ICD-10-PCS; 2022-01-18)
DX: O42.02 Full-term premature rupture of membranes, onset of labor within 24 hours of rupture (principal); Z3A.38 38 weeks gestation of pregnancy; Z20.822 Contact with and (suspected) exposure to COVID-19; O99.214 Obesity complicating childbirth; O69.81X0 Labor and delivery complicated by cord around neck, without compression, not applicable or unspecified; O71.82 Other specified trauma to perineum and vulva; O99.824 Streptococcus B carrier state complicating childbirth; Z37.0 Single live birth; Z23 Encounter for immunization; D62 Acute posthemorrhagic anemia; O90.81 Anemia of the puerperium
CPT/HCPCS: 36415; 59025; 85014; 85018; 85027; 86592; 86850; 86900; 86901; 87806; 90707; G0378; J3490; J0290; J0595; J2590; J7120; U0003